=== PATIENT | male | born 1940 | race Caucasian/White ===

== ENCOUNTER 2019-04-24 11:29 | Emergency (ER) | payer MEDICARE ==
[~2019-04-24] VITALS: Ht 170.2 cm; Wt 77.1 kg
[2019-04-24] MEDS ORDERED: LISINOPRIL10 MG PO (11:43)
[2019-04-24] MEDS ORDERED: GABAPENTIN100 MG PEG (11:43)
[2019-04-24] MEDS ORDERED: ALBUTEROL0.63 MG/3 (11:43)
[2019-04-24] MEDS ORDERED: FLOMAX0.4 MG PO (11:43)
[2019-04-24] MEDS ORDERED: NORCO 5-325 TA1 EACH PO (11:43)
[2019-04-24] MEDS ORDERED: OXYMETAZOLINE HCL 0.05% NAS 1 SPRAY BTL ONE (12:15)
--- NOTE | 2019-04-24 12:41 | NUR ---
ADMINISTERED SECOND DOSE OF AFFARIN
[2019-04-24 13:04] LABS: BASOPHILS # (AUTO) 0.1 (0.0-0.1); BASOPHILS % 0.7 % (0.0-1.0); EOSINOPHILS # (AUTO) 0.5 (0.0-0.4); EOSINOPHILS % 4.6 % (0.0-6.0); HEMATOCRIT 44.8 % (38.2-49.6); HEMOGLOBIN 15.6 g/dL (14.0-18.0); LYMPHOCYTES # (AUTO) 1.6 (1.0-3.2); LYMPHOCYTES % 15.7 % (18.0-39.1); MEAN CORPUSCULAR HEMOGLOBIN 32.2 pg (28-32); MEAN CORPUSCULAR HGB CONC 34.8 g/dL (31-35); MEAN CORPUSCULAR VOLUME 92.6 fL (81-99); MONOCYTES # (AUTO) 0.7 (0.2-0.8); MONOCYTES % 6.7 % (4.4-11.3); NEUTROPHILS # (AUTO) 7.1 (2.1-6.9); PLATELET COUNT 282 x10e3/uL (140-360); RED BLOOD COUNT 4.84 x10e6/uL (4.3-5.7); RED CELL DISTRIBUTION WIDTH 11.7 % (11.7-14.4)
[2019-04-24 13:17] LABS: INR 0.87; PROTHROMBIN TIME 12.3 seconds (11.9-14.5)
[2019-04-24 13:18] LABS: PARTIAL THROMBOPLASTIN TIME 27.3 seconds (23.8-35.5)
[2019-04-24 13:25] LABS: ALBUMIN/GLOBULIN RATIO 1.5 (0.8-2.0); ANION GAP 16.4 mmol/L (8-16); CALCIUM 10.1 mg/dL (8.4-10.2); CREATININE, SERUM 1.19 mg/dL (0.72-1.25); POTASSIUM 4.4 mmol/L (3.5-5.1)
== END 2019-04-24 15:04 | disposition home or self-care (01) ==
LOC: ER 11:29
DX: R04.0 Epistaxis (principal); I10 Essential (primary) hypertension
CPT/HCPCS: 36415; 80053; 85025; 85610; 85730; 99283

== ENCOUNTER 2019-05-11 10:55 | Emergency (ER) | payer MEDICARE ==
[~2019-05-11] VITALS: Ht 170.2 cm; Wt 77.1 kg
[~2019-05-11 10:55] MED LIST: ALBUTEROL0.63 MG/3; FLOMAX0.4 MG PO; GABAPENTIN100 MG PEG; LISINOPRIL10 MG PO; NORCO 5-325 TA1 EACH PO
--- NOTE | 2019-05-11 11:09 | NUR ---
nose clip placed and controlled bleeding at this time
[2019-05-11] MEDS ORDERED: SILVER NITRATE SWABS TOP ONE (11:15)
[2019-05-11] MEDS ORDERED: PHENYLEPHRINE HCL 0.5% NASAL 15 ML BTL SCH (11:45)
--- NOTE | 2019-05-11 12:13 | NUR ---
nasal trumpet placed to the left nare. pt.tolerated well. bleeding controlled
== END 2019-05-11 12:51 | disposition home or self-care (01) ==
LOC: ER 10:55
DX: R04.0 Epistaxis (principal)
CPT/HCPCS: 99284

== ENCOUNTER 2019-05-22 20:27 | Emergency (ER) | payer MEDICARE, OTHER ==
[~2019-05-22] VITALS: Ht 170.2 cm; Wt 77.1 kg
--- OUTSIDE RECORDS SUMMARY | 2019-05-22 20:30 | XMS REPORT | Summary of Care ---
Author Author [facility] Organization [facility] Address Unknown Phone Unavailable Care Team Providers Care Reviewer Sales Name Role Phone Oli Wade MD PCP Jordi Lentz MD Unavailable Unavailable Brad Pearl MD Unavailable Unavailable Will Bowles DO Unavailable Byron Paul MD Unavailable Olga Figueroa MD Unavailable Alma Yeung MD Unavailable Reason for Visit * Reason Comments Skin Rash groin and abdomen Encounter Details Care Team Description Date Type Department Ele Mondragon MD [address] [facility] [address] [place] [address] [phone] Skin Rash (groin and abdomen ) 05/13/2019 Office Visit [facility] Dermatology [address] [facility] [place] [phone] Allergies Comments Active Allergy Reactions Severity Noted Date Allergic to PCN since a child; not sure what reaction Penicillins 06/03/2012 documented as of this encounter (statuses as of 05/13/2019) Medications End Date Status Medication Sig Dispensed Refills Start Date Active ASPIRIN OR Take 81 mg by 0 mouth daily. Active Multiple Take 1 Tab by 0 Vitamins-Minerals mouth daily. (MULTIVITAMIN ADULTS 50+) TABS Active Misc Natural Products Take 1 Cap by 0 (TURMERIC CURCUMIN) CAPS mouth daily. Active Ginkgo Biloba 40 MG TABS Take 1 Tab by 0 mouth daily. Active Ibuprofen 200 MG CAPS Take 1 Tab by 0 mouth every 6 hours as needed. Active fluorouracil (EFUDEX) 5 % Apply 40 g 1 creamIndications: Actinic topically to 8 keratosis affected area on face twice a day for 2-4 weeks Active triamcinolone (KENALOG) Apply to 1 Tube 5 0.025 % creamIndications: armpits, 8 Actinic keratosis groin and garg BID every other day for itching PRN Active albuterol 108 (90 base) Inhale 1-2 1 Inhaler 5 mcg/act Puffs by 8 inhalerIndications: Mild mouth every 4 intermittent asthma with hours as acute exacerbation needed for Wheezing. Active Beccaria-3 Fatty Acids (FISH Take 1 g by 0 OIL OR) mouth two times daily. Active Calcium Take 1 Tab by 0 Carb-Cholecalciferol (HM mouth two CALCIUM-VITAMIN D) times daily. 500-200 MG-UNIT TABS Active Tamsulosin HCl 0.4 MG TAKE ONE 90 Cap 3 CAPSIndications: Benign CAPSULE BY 9 prostatic hyperplasia MOUTH ONCE with nocturia DAILY AT BEDTIME Active lisinopril (PRINIVIL, Take 1 Tab by 90 Tab 3 ZESTRIL) 10 MG mouth daily. 9 tabletIndications: Essential hypertension Active hydrocodone-acetaminophen 1 Tab as 0 (NORCO) 10-325 MG per needed. 9 tablet Active gabapentin (NEURONTIN) 3 Caps daily. 0 100 MG capsule 9 Active albuterol (PROVENTIL) 0 (2.5 mg/3 mL) 0.083% nebulizer solution Active Spacer/Aero-Hold Chamber 0 Bags MISC 9 Active triamcinolone (KENALOG) Apply to 454 g 0 0.1 % creamIndications: groin area 9 Rash 2x/day for 2 weeks, then weekends only x 2 weeks. documented as of this encounter (statuses as of 05/13/2019) Active Problems Problem Noted Date Spinal stenosis of lumbar region with neurogenic claudication 11/15/2018 Overview: 02/16/2019: had spinal cord stimulation trial: has tried epidurals and has also seen Neurosurgery for surgical options for pain. At this time he wants to proceed with less invasive options and we have discussed the role of SCS Acute bilateral low back pain with bilateral sciatica 09/28/2018 Essential hypertension 11/04/2016 Asthma 02/11/2016 Mediastinal lymphadenopathy 02/11/2016 Incidental pulmonary nodule, > 3mm and < 8mm 02/11/2016 Dermatochalasis of both eyelids 12/11/2014 AK (actinic keratosis) 12/11/2014 Primary localized osteoarthrosis, hand 10/14/2013 Hyperlipidemia 10/12/2013 Overview: Older than 75 documented as of this encounter (statuses as of 05/13/2019) Resolved Problems Problem Noted Date Resolved Date Benign neoplasm of other specified sites of skin 12/11/2014 05/23/2015 Pruritus 12/11/2014 11/04/2016 documented as of this encounter (statuses as of 05/13/2019) Immunizations Name Administration Dates Next Due Influenza (whole) 06/15/2013, 08/13/2010, 05/12/2008 Influenza Hd 05/11/2019, 04/16/2018, 05/22/2017, 05/13/2016 Pneumococcal 13-valent 05/13/2016 Conjugate Vaccine Pneumococcal 05/12/2008, 05/12/2008 Polysaccharide Td 08/13/2010 Tdap 08/13/2010 Zoster Live 11/08/2010, 07/06/2010 documented as of this encounter Social History Date Tobacco Use Types Packs/Day Years Used Quit: 07/06/1995 Former Smoker Smokeless Tobacco: Never Quit: 06/03/1995 Used Comments: h/o negative US aorta for AAA Drinks/Week oz/Week Comments Alcohol Use 1-6 Standard drinks or equivalent 0.6 - 3.6 Yes Alcohol Habits Answer Date Recorded How often do you have a drink containing alcohol? Monthly or less 07/01/2018 How many drinks containing alcohol do you have on 1 or 2 07/01/2018 a typical day when you are drinking? How often do you have six or more drinks on one Never 07/01/2018 occasion? Sex Assigned at Date Recorded Not on file Industry Job Start Date Occupation Not on file Not on file Not on file Travel End Travel History Travel Start No recent travel history available. documented as of this encounter Last Filed Vital Signs Not on filedocumented in this encounter Progress Notes * Ele Mondragon MD - 05/13/2019 9:00 AM [facility] INFORMATION C[facility] OFFICER Chief Complaint Patient presents with Skin Rash groin and abdomen 78 y.o. man here for itchy rash that started in groin area and now spreading to thighs and abdomen x 1 week. Tried some topical steroid with minimal improvement . PMH: AKs s/p Efudex with good results ROS: No other changing skin lesions or rashes. Physical Exam Gen: NAD, well-developed well-nourished, A&O, pleasant Skin (face, genitalia/groin/buttocks, back, right/left thighs) significant findi ngs---- A) Erythematous scaly patches left lower back and right pubic area; follicular e rythematous papules and pustules suprapubic area and bilateral inner thighs; ing uinal folds spared 1. Face clear A/P A) eczema vs folliculitis vs Avis --A skin biopsy was recommended for further evaluation and the patient agreed to proceed. Risks, including pain, scarring, infection, and bleeding were discusse d. The patient provided informed written consent. Time-out was performed to conf irm the correct patient, procedure, and site. The biopsy site was wiped with alc ohol and anesthestized with lidocaine with epinephrine. A 3 mm punch biopsy (ful l thickness cylindrical tissue sample) was performed on the R suprapubic area fo r the purpose of diagnostic pathologic examination. FAG suture was used for clos ure. Dressing was applied. Wound care instructions were discussed with the patie nt and written instructions were provided. The patient tolerated the procedure w ell. The patient will be notified of the pathology results. --Rx Triamcinolone 0.1% ointment x 2 weeks, then taper for moderate areas on bod y. Avoid face, groin, and axillae; SE atrophy and hypopigmentation discussed. 1. H/o AKs --Recommend yearly skin checks Ele Mondragon MD Director Of Housing Department of Dermatology [facility] AT INFORMATION CENTER OFFICER documented in this encounter Plan of Treatment Care Team Description Date Type Specialty Yolanda Acuna RN 2019 Office Visit Family Medicine Order Schedule Name Type Priority Associated Diagnoses Ordered: 05/13/2019 [place] PUNCH BIOPSY SKIN [place] Charge Routine Rash SINGLE LESION Health Maintenance Due Date Last Done Comments MEDICARE AWV 07/01/2019 07/01/2018, 07/01/2018, 05/22/2017, Additional history exists COLON CANCER SCREENIN10/18/2019 10/17/2014 COLONOSCOPY BMI FOLLOW UP PLAN 05/11/2020 05/11/2019, 07/01/2018, 07/01/2018, Additional history exists FALL SCREEN 05/11/2020 05/11/2019, 07/01/2018 TETANUS SHOT (ADULT) 08/13/2020 08/13/2010, 08/13/2010 PNEUMOVAX >=65 (PPSV23) Completed 05/12/2008, 05/12/2008 PREVNAR >=65 (PCV13) Completed 05/13/2016 FLU VACCINE > 6 MONTHS Completed 05/11/2019, 04/16/2018, 04/16/2018, Additional history exists documented as of this encounter Results Not on filedocumented in this encounter Visit Diagnoses Diagnosis Rash - Primary Rash and other nonspecific skin eruption History of actinic keratoses Personal history of diseases of skin and subcutaneous tissue documented in this encounter Insurance Type Payer Benefit Subscriber ID Effective Phone Address Plan / Dates Group Medicare MEDICARE MEDICARE xxxxxxxxxxx 2014- [address] Present [id number] [place] [address] Medicare LIFE INSURANCE MEDICARE xxxxxxxxxx 2011-P [phone] Health SUPPLEMENT resent Claims [address] [address] [place] [address] documented as of this encounter
--- OUTSIDE RECORDS SUMMARY | 2019-05-22 20:31 | XMS REPORT | Summary of Care ---
Author Author [facility] Organization [facility] Address Unknown Phone Unavailable Care Team Providers Care Marine Service Operator Name Role Phone Oli Wade MD PCP Jordi Lentz MD Unavailable Unavailable Brad Pearl MD Unavailable Unavailable Will Bowles DO Unavailable Byron Paul MD Unavailable Olga Figueroa MD Unavailable Alma Yeung MD Unavailable Reason for Visit * Reason Comments Continuing Care Visit htn/chol Hospital Follow-up nose bleeding Encounter Details Care Team Description Date Type Department Oli Wade MD [address] [address] Continuing Care Visit (htn/chol); Hospital Follow-up (nose bleeding) 05/11/2019 Office Visit [facility] Family Medicine [address] [phone] Allergies Comments Active Allergy Reactions Severity Noted [...] as acute exacerbation needed for Wheezing. Active Prospect-3 Fatty Acids (FISH Take 1 g by [...] Active Spacer/Aero-Hold Chamber 0 Bags MISC 9 documented as of this encounter (statuses as [...] of this encounter Last Filed Vital Signs Reading Time Taken Comments Vital Sign 118/81 05/11/2019 8:54 AM BRUSH CLEARER SURVEYING Blood Pressure 55 05/11/2019 8:54 AM BR[employer] CLEARER SURVEYING Pulse 36.4 C (97.6 F) 05/11/2019 8:54 AM BR[employer] CLEARER SURVEYING Temperature 16 05/11/2019 8:54 AM BRUSH CLEARER SURVEYING Respiratory Rate - - Oxygen Saturation - - Inhaled Oxygen Concentration 75.6 kg (166 lb 9.6 oz) 05/11/2019 8:54 AM BRUSH CLEARER SURVEYING Weight 170.2 cm (5' 7") 05/11/2019 8:54 AM BR[employer] CLEARER SURVEYING Height 26.09 05/11/2019 8:54 AM BRUSH CLEARER SURVEYING Body Mass Index documented in this encounter Patient Instructions * Patient Instructions* Oli Wade MD - 05/11/2019 8:50 AM BRUSH CLEARER SURVEYING Body Mass Index: After Your Visit Today's BMI: Body mass index is 26.09 kg/m. Your Care Instructions Body mass index (BMI) can help you see if your weight is raising your risk for h ealth problems. It uses a formula to compare how much you weigh with how tall yo u are. A BMI between 18.5 and 24.9 is considered normal. A BMI between 25 and 29 .9 is considered overweight. A BMI of 30 or higher is considered obese. If your BMI is in the normal range, it means that you have a lower risk for weig ht-related health problems. If your BMI is in the overweight or obese range, you may be at increased risk for weight-related health problems, such as high blood pressure, heart disease, stroke, arthritis or joint pain, and diabetes. BMI is just one measure of your risk for weight-related health problems. You may be at higher risk for health problems if you are not active, you eat an unhealt hy diet, or you drink too much alcohol or use tobacco products. Follow-up care is a paula part of your treatment and safety. Be sure to make and g o to all appointments, and call your doctor if you are having problems. Its a lso a good idea to know your test results and keep a list of the medicines you t yessenia. How can you care for yourself at home? Practice healthy eating habits. This includes eating plenty of fruits, vegetable s, whole grains, lean protein, and low-fat dairy. Get at least 30 minutes of exercise 4 to 5 days a week or more. Brisk walking is a good choice. You also may want to do other activities, such as running, swimm ing, cycling, or playing tennis or team sports. Do not smoke. Smoking can increase your risk for health problems. If you need he lp quitting, talk to your doctor about stop-smoking programs and medicines. Thes e can increase your chances of quitting for good. Limit alcohol to 2 drinks a day for men and 1 drink a day for women. Too much al cohol can cause health problems. If you have a BMI higher than 25 Your doctor may do other tests to check your risk for weight-related health prob lems. This may include measuring the distance around your waist. A waist measure ment of more than 40 inches in men or 35 inches in women can increase the risk o f weight-related health problems. Talk with your doctor about steps you can take to stay healthy or improve your h ealth. You may need to make lifestyle changes to lose weight and stay healthy, s uch as changing your diet and getting regular exercise. When should you call for help? Watch closely for changes in your health, and be sure to contact your doctor if you have any problems. This care instruction is for use with your licensed healthcare professional. If you have questions about a medical condition or this instruction, always ask you r healthcare professional. Care instructions adapted by [facility] robert from [employer] 2007. [employer] disclaims any warranty or l iability for your use of this information. H CLEARER SURVEYING documented in this encounter Progress Notes * Oli Wade MD - 05/11/2019 8:50 AM BRUSH CLEARER SURVEYING Reason for visit: f/u on Hypertension and Hyperlipidemia - I have reviewed the patient assessment CCV questionnaire completed via [employer] o r transcribed from the written form. n/a No chest pain, no SOB Had epistaxis 04/25/2019 and he went to [facility] ER. Nose was packed and he fol lowed up with ENT. No more bleeding HYPERTENSION BP Readings from Last 3 Encounters: 05/11/19 118/81 03/15/19 (!) 156/98 03/09/19 105/68 Patient's goal met?===== BP <140/90 YES JNC VII - goal <140/90 - <130/80 for patients with diabetes or chronic kidney disease JNC VII - stage 1 (140-159/90-99) thiazide diuretic for most,or ACEi,ARB, BB, CCB stage 2 (>160/100) 2-drug combination - compelling conditions indicate specific drugs HYPERLIPIDEMIA Family History Problem Relation Name Age of Onset High Blood Pressure Mother Congestive Heart Failure Mother Alzheimers Mother Heart Disease Father 66 Breast Cancer Sister 65 Diabetes Brother Back Problems Sister Colon Cancer Neg Hx Ovarian Cancer Neg Hx Prostate Cancer Neg Hx Melanoma Neg Hx Premature Coronary Artery Disease Neg Hx CVA/Stroke Neg Hx High Cholesterol Neg Hx Social History Tobacco Use Smoking Status Former Smoker Last attempt to quit: 07/06/1995 Years since quittin.8 Smokeless Tobacco Never Used Tobacco Comment h/o negative US aorta for AAA BP Readings from Last 3 Encounters: 05/11/19 118/81 03/15/19 (!) 156/98 03/09/19 105/68 Lab Results Component Value Date HDL 56 11/15/2018 Most recent lipid panel- Lab Results Component Value Date CHOL 218 (H) 11/15/2018 HDL 56 11/15/2018 LDLCALC 137 (H) 11/15/2018 TRIG 125 11/15/2018 CHOLHDL 4.8 05/28/2017 Adherence HTN meds taken regularly YES Lipids meds taken regularly n/a Med side effects -Lab Results Component Value Date ALT 19 11/15/2018 ATP III - Drug treatment indicated: If LDL >130 with CHD, CHD equivalent (10 year risk >20%), or 2+ risk factors and 10 year risk 10-120% If LDL >160 with 2+ risk factors and 10-year risk <10% If LDL >190 with 0-1 risk factor If TG 200-499 after LDL goal reached or if TG >500, add nicotinic acid or fibrate Chemoprophylaxis ASA - no Target Organ Damage lab Lab Results Component Value Date CREATININE 0.91 11/15/2018 Other ASCVD risk factors/Labs Lab Results Component Value Date GLUCOSE 84 11/15/2018 Lab Results Component Value Date HGBA1C 5.6 12/25/2017 Immunizations - Immunization History Administered Date(s) Administered Influenza (whole) 05/12/2008, 08/13/2010, 06/15/2013 Influenza Hd 05/13/2016, 05/22/2017, 04/16/2018, 05/11/2019 Pneumococcal 13-valent Conjugate Vaccine 05/13/2016 Pneumococcal Polysaccharide 05/12/2008, 05/12/2008 Td 08/13/2010 Tdap 08/13/2010 Zoster Live 07/06/2010, 11/08/2010 Reviewed vital signs, allergies, medications, past and family/social history, pr oblem list. Physical Exam BP 118/81 | Pulse 55 | Temp 97.6 F (36.4 C) (Oral) | Resp 16 | Ht 5' 7" (1.702 m) | Wt 166 lb 9.6 oz (75.6 kg) | BMI 26.09 kg/m Body mass index is 26.09 kg/m. - General : 78 y.o. male well developed, well nourished and in no acute distress Nose; no bleeding HEENT: normocephalic, atraumatic. PER, mucus membranes moist Neck: supple, sym metrical, trachea midline, no adenopathy, thyroid normal, No carotid bruit Lungs: Clear to auscultation bilaterally and no wheezes, rubs or rales Heart: RRR, S1, S2 normal, no murmur, click, rub or gallop Abdomen: Soft, non-tender. Bowel sounds normal. No masses, no organomegaly Musculoskeletal: symmetrical with no deformity, with normal posture Pulses: 2+ and symmetric Ext: no pedal edema, no clubbing or cyanosis Neuro: Grossly normal, non-focal Na 135; K 4.3; Cl 105; CO2 23; BUN 15; Cr 0.83; Sugar 86 On 02/16/2019 Assessment / Plan HYPERTENSION Controlled? - YES HYPERLIPIDEMIA Controlled? - YES Glen was seen today for continuing care visit and hospital follow-up. Diagnoses and all orders for this visit: Essential hypertension Need for influenza vaccination - FLU VACCINE HIGH DOSE >65YO Health education/counseling - PT INSTR GIVEN - BMI>24 Hyperlipidemia, unspecified hyperlipidemia type Discussed self-monitoring YES H CLEARER SURVEYING documented in this encounter Plan of Treatment Care Team Description Date Type Specialty Yolanda Acuna RN 2019 Office Visit Family Medicine Order Schedule Name Type Priority Associated Diagnoses Ordered: 05/11/2019 PT INSTR GIVEN - BMI>24 Nursing Routine Health education/counseling Health Maintenance Due Date Last Done Comments [...] filedocumented in this encounter Visit Diagnoses Diagnosis Essential hypertension - Primary Unspecified essential hypertension Need for influenza vaccination Need for prophylactic vaccination and inoculation against influenza Health education/counseling Counseling NOS Hyperlipidemia, unspecified hyperlipidemia type documented in this encounter Insurance Type Payer Benefit Subscriber ID Effective Phone Address Plan / Dates Group Medicare MEDICARE MEDICARE xxxxxxxxxxx 2014- [address] Present [id number] [place] [address] Medicare LIFE INSURANCE MEDICARE xxxxxxxxxx 2011-P [phone] Health SUPPLEMENT resent Claims [address] [address] [place] [address] documented as of this encounter
== END 2019-05-22 21:29 | disposition home or self-care (01) ==
LOC: ER 20:27
DX: S50.362A Insect bite (nonvenomous) of left elbow, initial encounter (principal); I10 Essential (primary) hypertension
CPT/HCPCS: 99282

== ENCOUNTER 2022-08-31 15:04 | Emergency (ER) | payer MEDICARE ==
[~2022-08-31] VITALS: Ht 170.2 cm; Wt 71.7 kg
== END 2022-08-31 17:39 | disposition home or self-care (01) ==
LOC: FSED 15:20
DX: S40.022A Contusion of left upper arm, initial encounter (principal); I10 Essential (primary) hypertension; L30.9 Dermatitis, unspecified; N40.0 Benign prostatic hyperplasia without lower urinary tract symptoms; X58.XXXA Exposure to other specified factors, initial encounter; Z79.899 Other long term (current) drug therapy; Z87.891 Personal history of nicotine dependence
CPT/HCPCS: 99282